=== PATIENT | male | born 1970 | race Caucasian/White ===

== ENCOUNTER 2019-02-06 18:12 | Inpatient (IN) | payer OTHER ==
[2019-02-06] MEDS ORDERED: ONDANSETRON 4 MG/2 ML VIAL IVP ONE (18:37)
[2019-02-06] MEDS ORDERED: HYDROmorphONE/DILAUDID 2 MG/ML INJ IVP ONE (18:37)
--- NOTE | 2019-02-06 18:57 | EDPHY ---
H & P Stated Complaint: Dx oveerseas gall stones c biliary obstr. N/V, jaundice, pain Time Seen by Provider: 02/06/19 18:14 HPI/ROS: CHIEF COMPLAINT: Jaundice, dark urine, abdominal pain, recent diagnosis of gallstones HISTORY OF PRESENT ILLNESS: 49-year-old male presents from [facility]. Patient's job requires him to travel to [facility] for several weeks each month. 1 week ago, while in [facility], he developed right upper quadrant discomfort, described as a cramp. 2 days later he noted that the pain was worse when he was eating. noted that the patient was developing scleral icterus, the patient noted dark, tea-colored urine. 3 days ago he was seen at hospital in [facility] and was diagnosed with gallbladder sludge, and a 5 mm gallstone. Patient reports that if he eats anything develops severe pain and vomiting. He has not had food for the last week. Denies any fever. No chest pain, shortness of breath, diarrhea. No urinary complaints other than dark urine. Reports no abdominal pain currently. Also reports hepatitis screen in [facility] for hepatitis A, B, and C were negative. No fever, chills, chest pain, shortness of breath, palpitations, diarrhea, urinary complaints, headache, lightheadedness. REVIEW OF SYSTEMS: A comprehensive 10 system review of systems was reviewed and is otherwise negative aside from elements mentioned in the history of present illness and medical decision making. PAST MEDICAL HISTORY: Aortic valve replacement x2 secondary to bicuspid aortic valve and endocarditis. Currently not on any anticoagulants. SOCIAL HISTORY: Here with his . Occasional alcohol, nonsmoker, daily marijuana use. believes patient is somewhat slow to answer questions. VITAL SIGNS Reviewed by me. Heart rate 109, afebrile. GENERAL: Well-developed, well-nourished, resting comfortably in no respiratory distress. Obviously jaundiced. HEENT: Atraumatic. Eyes: Scleral icterus, no injection. Mouth: Slightly dry mucous membranes. No erythema or lesions. Neck: supple with no adenopathy. LUNGS: Clear to auscultation bilaterally, no wheezes, rhonchi or rales. CARDIAC: Regular rate and rhythm, soft systolic murmurs. ABDOMEN: Soft, mild right upper quadrant tenderness, no distension. No guarding. BACK: No CVA tenderness. EXTREMITIES: No trauma. No edema. Range of motion is normal throughout. NEURO: Alert and oriented, grossly nonfocal. SKIN: Warm and dry, no rash. PSYCHIATRIC: Normal mentation, no agitation. - Personal History Current Tetanus/Diphtheria Vaccine: Unsure - Medical/Surgical History Hx Asthma: No Hx Chronic Respiratory Disease: No Hx Diabetes: No Hx Cardiac Disease: No Hx Renal Disease: No Hx Cirrhosis: No Hx Alcoholism: No Hx HIV/AIDS: No Hx Splenectomy or Spleen Trauma: No Other PMH: Aortic valve x2, endocarditist - Social History Smoking Status: Former smoker Constitutional: Initial Vital Signs Temperature (C) 36.4 C 02/06/19 18:15 Heart Rate 109 H 02/06/19 18:15 Respiratory Rate 16 02/06/19 18:15 Blood Pressure 124/92 H 02/06/19 18:15 O2 Sat (%) 94 02/06/19 18:15 O2 Delivery Mode Room Air Allergies/Adverse Reactions: cefazolin Allergy (Verified 02/06/19 19:48) Home Medications: Medication Instructions Recorded Aspirin EC [Aspirin EC 81 mg (*)] 81 mg PO HS 02/06/19 Metoprolol Succinate Xr [Toprol Xl 25 mg PO HS 02/06/19 25 mg (*)] Acetaminophen [Tylenol 325mg (*)] 650 mg PO Q4HRS PRN tab 02/08/19 Medical Decision Making - Diagnostics Imaging Results: RUQ Ultrasound Impression: 1. Choledocholithiasis with 7mm calculus in the downstream common bile duct resulting in moderate biliary dilation. 2. Cholelithiasis and gallbladder sludge. Positive sonographic Carroll sign. 3. Probably benign hemangioma versus focal hepatic steatosis in caudal right lobe of liver. Imaging options include six-month wall of targeted ultrasound versus MRI of the abdomen with and without IV contrast. Findings discussed with Emergency Department physician certified surgical tech/first assistant, Rosa Funk MD at 02/06/2019 19:36. Dictated By: Donn Welch MD Imaging: Discussed imaging studies w/ call center trainer Radiologist ED Course/Re-evaluation: IV placed, normal saline begun. Patient denies any current pain. Labs from [facility] below reviewed by myself. Patient has white count of 7.9 when he was seen on February 04. Laboratory evaluation demonstrates a white count of 6.9, electrolytes remarkable for elevation of ALT and AST and alk-phos in the 200 range. Bilirubin is 7.5. Ultrasound is consistent with choledocholithiasis with a 7 mm gallstone lodged the pancreatic section of the of the common bile duct with obstructive features. Patient's course was discussed with the hospitalist service, Dr. Rusty Haynes , who will admit the patient. Gastroenterology, Dr. Andrea, was also consulted for probable ERCP. General surgery, Dr. Peña, is also aware of the patient. Discussed the results of the lab studies and ultrasound with the patient and his and they are in agreement. Differential Diagnosis: After obtaining the patient's history and performing an examination, differential diagnosis considered included but was not limited to cholecystitis , choledocholithiasis, cholangitis, pancreatitis, hepatitis. Consult/Admit Bed Type: Dr. Shantanu Haynes, [facility] surg - Data Points Laboratory Results: Laboratory Results 02/06/19 18:42 02/06/19 18:42 Medications Given: Discontinued Medications Bupivacaine HCl/Epinephrine Bitart (Bupivacaine/Epi) Confirm Administered Dose 30 ml .ROUTE .[facility]-MED ONE Stop: 02/08/19 08:59 Last Admin: 02/08/19 10:13 Dose: 30 ml Sodium Chloride (Ns) 1,000 mls @ 0 mls/hr IV ONCE ONE; Wide Open PRN Reason: Protocol Stop: 02/06/19 19:01 Last Admin: 02/06/19 19:15 Dose: 1,000 mls Sodium Chloride (Ns) 1,000 mls @ 0 mls/hr IV ONCE ONE; Wide Open PRN Reason: Protocol Stop: 02/06/19 19:02 Last Admin: 02/06/19 19:01 Dose: Not Given Ertapenem 1 gm/ Sodium (Chloride) 100 mls @ 200 mls/hr IV Q24H AMY PRN Reason: Protocol Stop: 03/08/19 20:59 Last Admin: 02/07/19 20:09 Dose: 100 mls Sodium Chloride (Ns) 1,000 mls @ 125 mls/hr IV CONT AMY Stop: 08/05/19 20:29 Last Admin: 02/08/19 02:29 Dose: 1,000 mls Lactated Ringer's (Lr) 1,000 mls @ 125 mls/hr IV ONCE ONE Stop: 02/07/19 23:12 Last Admin: 02/07/19 15:21 Dose: 1,000 mls Lactated Ringer's (Lr) 1,000 mls @ 0 mls/hr IV ONCE ONE PRN Reason: TKO Stop: 02/08/19 09:08 Last Admin: 02/08/19 13:18 Dose: Not Given Indomethacin (Indocin Rectal) Confirm Administered Dose 100 mg WA .STK-MED ONE Stop: 02/07/19 17:51 Last Admin: 02/07/19 18:06 Dose: 100 mg Iopamidol (Isovue-M 300) Confirm Administered Dose 15 ml .ROUTE .STK-MED ONE Stop: 02/08/19 08:59 Last Admin: 02/08/19 10:14 Dose: Not Given Iothalamate Meglumine (Conray) Confirm Administered Dose 50 ml IV .STK-MED ONE Stop: 02/08/19 08:59 Last Admin: 02/08/19 10:14 Dose: Not Given Metoprolol Succinate (Toprol Xl) 25 mg PO HS AMY Stop: 08/05/19 20:59 Last Admin: 02/07/19 20:12 Dose: 25 mg Ondansetron HCl (Zofran) 4 mg IVP EDNOW ONE Stop: 02/06/19 18:38 Last Admin: 02/06/19 19:01 Dose: Not Given Departure - Departure Disposition: [facility] Acute Clinical Impression: Jaundice, Choledocholithiasis with acute cholecystitis Abdominal pain Qualifiers: Abdominal location: right upper quadrant Qualified Code(s): R10.11 - Right upper quadrant pain Condition: Fair
[2019-02-06] MEDS ORDERED: NS 1,000 ML IV ONE (19:01)
[2019-02-06] MEDS: NS 1,000 ML IV ONE ×2 (19:12→19:15)
[2019-02-06 19:14] LABS: PLATELET COUNT 218 10^3/uL (150-400)
[2019-02-06 19:21] LABS: INR 1.02 (0.83-1.16)
[2019-02-06] MEDS ORDERED: ACETAMINOPHEN 325 MG TAB PO PRN (20:19)
[2019-02-06] MEDS ORDERED: ONDANSETRON 4 MG/2 ML VIAL IVP PRN (20:19)
[2019-02-06] MEDS ORDERED: PROMETHAZINE HCL 25 MG/ML INJ IVP PRN (20:19)
[2019-02-06] MEDS ORDERED: ONDANSETRON DISINTEGRATING 4 MG TAB PO PRN (20:19)
[2019-02-06] MEDS ORDERED: HYDROmorphONE/DILAUDID 1 MG/ML INJ IVP PRN (20:19)
--- NOTE | 2019-02-06 21:01 | PDGENHP ---
History and Physical - Chief Complaint abdominal pain, jaundice - History of Present Illness Otherwise healthy 49yo M presents with jaundice, abdominal pain. Briefly, was in [place] last week as he works [place]. Noted some progressive abdominal pain with jaundice. Was seen by a physician there who correctly diagnosed him with choledoch. Was placed on a few medications and traveled back home. He arrived home earlier today. He has no pain currently, but does state that he is orange. PAin that he was having was RUQ without radiation and worse with PO intake, History Information - Allergies/Home Medication List Allergies/Adverse Reactions: cefazolin Allergy (Verified 02/06/19 19:48) Home Medications: Aspirin EC [Aspirin EC 81 mg (*)] 81 mg PO HS 02/06/19 [Last Taken 02/05/19] Metoprolol Succinate Xr [Toprol Xl 25 mg (*)] 25 mg PO HS 02/06/19 [Last Taken 02/05/19] I have personally reviewed and updated: family history, medical history, social history, surgical history Past Medical History: bicuspid AV, s/p AVR x2 - Surgical History Additional surgical history: no abd surgeries, AVR x2 - Family History Positive for: non-pertinent - Social History Smoking Status: Former smoker Review of Systems Review of Systems: ROS: 10pt was reviewed & negative except for what was stated in HPI & below Physical Exam Physical Exam: Temp Pulse Resp BP Pulse Ox 36.7 C 78 16 124/73 H 91 L 02/06/19 20:24 02/06/19 20:24 02/06/19 20:24 02/06/19 20:24 02/06/19 20:24 Constitutional: no apparent distress, appears nourished, not in pain Eyes: PERRL, anicteric sclera, EOMI Ears, Nose, Mouth, Throat: moist mucous membranes, hearing normal, ears appear normal, no oral mucosal ulcers Cardiovascular: regular rate and rhythym, no murmur, rub, or gallop, No edema Respiratory: no respiratory distress, no rales or rhonchi, clear to auscultation Gastrointestinal: soft, non-tender abdomen, no palpable masses Genitourinary: no bladder fullness, no bladder tenderness Skin: warm, normal color, no rashes or abrasions, no fluctuance, no induration, No mottled Musculoskeletal: full muscle strength, no muscle tenderness, normal joint ROM, no joint effusions Psychiatric: interacting appropriately, not anxious, not encephalopathic, thought process linear Lymph, Heme, Immunologic: no cervical LAD, no supraclavicular LAD Lab Data & Imaging Review 02/06/19 18:42 02/06/19 18:42 WBC 6.94 10^3/uL (3.80-9.50) 02/06/19 18:42 RBC 4.82 10^6/uL (4.40-6.38) 02/06/19 18:42 Hgb 14.6 g/dL (13.7-17.5) 02/06/19 18:42 Hct 40.5 % (40.0-51.0) 02/06/19 18:42 MCV 84.0 fL (81.5-99.8) 02/06/19 18:42 MCH 30.3 pg (27.9-34.1) 02/06/19 18:42 MCHC 36.0 g/dL (32.4-36.7) 02/06/19 18:42 RDW 12.7 % (11.5-15.2) 02/06/19 18:42 Plt Count 218 10^3/uL (150-400) 02/06/19 18:42 MPV 10.8 fL (8.7-11.7) 02/06/19 18:42 Neut % (Auto) 54.1 % (39.3-74.2) 02/06/19 18:42 Lymph % (Auto) 33.7 % (15.0-45.0) 02/06/19 18:42 [place] % (Auto) 8.9 % (4.5-13.0) 02/06/19 18:42 Eos % (Auto) 2.4 % (0.6-7.6) 02/06/19 18:42 Baso % (Auto) 0.6 % (0.3-1.7) 02/06/19 18:42 Nucleat RBC Rel Count 0.0 % (0.0-0.2) 02/06/19 18:42 Absolute Neuts (auto) 3.75 10^3/uL (1.70-6.50) 02/06/19 18:42 Absolute Lymphs (auto) 2.34 10^3/uL (1.00-3.00) 02/06/19 18:42 Absolute Monos (auto) 0.62 10^3/uL (0.30-0.80) 02/06/19 18:42 Absolute Eos (auto) 0.17 10^3/uL (0.03-0.40) 02/06/19 18:42 Absolute Basos (auto) 0.04 10^3/uL (0.02-0.10) 02/06/19 18:42 Absolute Nucleated RBC 0.00 10^3/uL (0-0.01) 02/06/19 18:42 Immature Gran % 0.3 % (0.0-1.1) 02/06/19 18:42 Immature Gran # 0.02 10^3/uL (0.00-0.10) 02/06/19 18:42 PT 13.0 SEC (12.0-15.0) 02/06/19 18:42 INR 1.02 (0.83-1.16) 02/06/19 18:42 APTT 26.9 SEC (23.0-38.0) 02/06/19 18:42 VBG Lactic Acid 1.0 mmol/L (0.7-2.1) 02/06/19 18:42 Sodium 137 mEq/L (135-145) 02/06/19 18:42 Potassium 3.7 mEq/L (3.5-5.2) 02/06/19 18:42 Chloride 100 mEq/L (97-110) 02/06/19 18:42 Carbon Dioxide 26 mEq/l (22-31) 02/06/19 18:42 Anion Gap 11 mEq/L (6-14) 02/06/19 18:42 BUN 11 mg/dL (7-23) 02/06/19 18:42 Creatinine 0.9 mg/dL (0.7-1.3) 02/06/19 18:42 Estimated GFR > 60 02/06/19 18:42 Glucose 96 mg/dL (70-100) 02/06/19 18:42 Calcium 9.7 mg/dL (8.5-10.4) 02/06/19 18:42 Total Bilirubin 7.5 mg/dL (0.1-1.4) H 02/06/19 18:42 Conjugated Bilirubin 5.0 mg/dL (0.0-0.5) H 02/06/19 18:42 Unconjugated Bilirubin 2.5 mg/dL (0.0-1.1) H 02/06/19 18:42 AST 147 IU/L (17-59) H 02/06/19 18:42 ALT 387 IU/L (21-72) H 02/06/19 18:42 Alkaline Phosphatase 229 IU/L (38-126) H 02/06/19 18:42 Total Protein 7.4 g/dL (6.3-8.2) 02/06/19 18:42 Albumin 4.6 g/dL (3.5-5.0) 02/06/19 18:42 Lipase 58 IU/L (23-300) 02/06/19 18:42 Urine Color RJ 02/06/19 18:30 Urine Appearance CLEAR 02/06/19 18:30 Urine pH 6.0 (5.0-7.5) 02/06/19 18:30 Ur Specific [place] 1.010 (1.002-1.030) 02/06/19 18:30 Urine Protein NEGATIVE (NEGATIVE) 02/06/19 18:30 Urine Ketones NEGATIVE (NEGATIVE) 02/06/19 18:30 Urine Blood NEGATIVE (NEGATIVE) 02/06/19 18:30 Urine Nitrate NEGATIVE (NEGATIVE) 02/06/19 18:30 Urine Bilirubin NEGATIVE (NEGATIVE) 02/06/19 18:30 Urine Urobilinogen 4.0 EU (0.2-1.0) H 02/06/19 18:30 Ur Leukocyte Esterase NEGATIVE (NEGATIVE) 02/06/19 18:30 Urine RBC 1-3 /hpf (0-3) 02/06/19 18:30 Urine WBC 1-3 /hpf (0-3) 02/06/19 18:30 Ur Epithelial Cells TRACE /lpf (NONE-1+) 02/06/19 18:30 Urine Glucose NEGATIVE (NEGATIVE) 02/06/19 18:30 Visualized and Interpreted imaging results: Yes Interpretation: US choledoch, many stones in GB, no PCF, normal GBW Assessment & Plan Assessment: 49yo M c choledocholithiasis Plan: admit to IM IV abx given hx of endocarditis, I see no current signs of cholangitis - ERCP tomorrow - will follow with lap yecenia. RBA discussed, all questions answered.
[2019-02-06] MEDS: NS 1,000 ML IV SCH (21:10)
[2019-02-06] MEDS: ERTAPENEM 1 GM in NS 100 ML IV SCH (21:10)
--- NOTE | 2019-02-06 21:10 | GHP ---
[f rep st] HISTORY AND PHYSICAL DATE OF ADMISSION: 02/06/2019 HISTORY OF PRESENT ILLNESS: The patient is a pleasant 49-year-old gentleman with past medical histor y of bicuspid aortic valve with aortic valve replacement x2, last 25 years ago, as well as remote end ocarditis who presents with several days of abdominal pain and jaundice. He had been traveling [place] in [facility], and for about the last week, he has felt some right upper quadrant pain and n ausea. He has had a difficult time eating, really has not eaten at all. He saw a doctor there who d id an ultrasound, apparently diagnosed him with choledocholithiasis and gave him pain medicine and an tibiotics, what appears to be amoxicillin. He ultimately decided to fly home, and [place]. When I speak with the patient, he notes he has right upper quadrant pain. He has had jaundice. He has not had a bowel movement in a week. He has not been having romero-colored stools. H e has been having dark urine. He states he is not having fever or chills. He does not have heart failure symptoms now, but he has in the past. He is not having nausea, vomiti ng, or diarrhea. REVIEW OF SYSTEMS: Complete 10-point review of systems conducted and negative, except as noted in th e HPI. PAST MEDICAL HISTORY: 1. Bicuspid aortic valve with aortic valve replacement x2. 2. 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 His last aortic valve replacement was 1992 at the [facility]. ALLERGIES: Cefazolin. He also has a hard time tolerating ampicillin. He gets flushing. HOME MEDICATIONS: Metoprolol and aspirin. SOCIAL HISTORY: He lives in [facility] with his . He is a nonsmoker. Rare alcohol. PHYSICAL EXAMINATION: PRESENTING VITALS: Temp 36.4, blood pressure 124/92, pulse 109, breathing 16 times a minute, 94% on room air. GENERAL: No acute distress. HEENT: Sclerae are anicteric. Oroph arynx clear. Mucous membranes are moist. NECK: Supple without lymphadenopathy or JVD. LUNGS: Carroll ar to auscultation bilaterally. HEART: S1, S2. ABDOMEN: Soft. There is right upper quadrant tend erness. There is no rebound or guarding. Bowel sounds are hypoactive but present. LOWER EXTREMITIE S: Trace edema bilaterally. Calves are nontender. SKIN: Without rash. NEUROLOGIC: Nonfocal. LABS: White count 6.9, hematocrit 40, platelets are 218,000. Coags: INR is 1. Venous lactate is 1 .00. Chem-7: Sodium 137, potassium 3.7, chloride 100, bicarb 26, BUN 11, creatinine 0.9. Bilirubin is 7.55, which is conjugated. AST 147, ALT 387, alk phos 229, lipase 58. UA is unremarkable other than urobilinogen. Abdominal ultrasound shows a 7 mm common bile duct stone with moderate biliary di lation, cholelithiasis, and gallbladder sludge with positive sonographic Carroll sign. Positive heman gioma of the liver. I discussed the case with Dr. Jaya Andrea, Dr. Rosa Funk. ASSESSMENT AND PLAN: A -wnhg-ddl gentle with choledocholithiasis and hyperbilirubinemia. 1. Choledocholithiasis: The patient needs an endoscopic retrograde cholangiopancreatography. I dis cussed this with Dr. Andrea who will see him in the morning. I will make him nothing by mouth past m idnight. Given his longstanding nature of this, will start him on ertapenem tonight. I have made th is antibiotic choice because of his intolerance of ampicillin. 2. Question cholecystitis: He has a source of stones and a Carroll sign. He probably ultimately nee ds cholecystectomy. Surgery has been consulted. Dr. Peña requested endoscopic retrograde chol angiopancreatography prior to laparoscopic cholecystectomy. 3. Bicuspid aortic valve: Patient has a tissue valve. He is not on anticoagulants. 4. Prophylaxis: Sequential compression devices for now. DISPOSITION: Inpatient status. /[id number]/MODL
[2019-02-06] MEDS: METOPROLOL SUCCINATE XR 25 MG TAB PO SCH (23:05)
[2019-02-07] MEDS: NS 1,000 ML IV SCH ×2 (05:09→12:31)
[2019-02-07 05:12] LABS: PLATELET COUNT 219 10^3/uL (150-400)
[2019-02-07 05:19] LABS: PROTIME(PATIENT) 12.8 SEC (12.0-15.0)
--- NOTE | 2019-02-07 07:07 | PDMN ---
Medical Necessity Medical necessity: Pt meets inpt criteria per MD order and [facility] M-[id number], Gallbladder or Bile Duct Inflammation or Stone, A-2 days, inpt adm indicated for : common bile duct obstruction diagnosed by imaging and for: evidence of common bile duct disease as indicated by total serum bilirubin level greater than 2 mg/ dL . 49 y/o presenting w/jaundice,RUQ pain, and nausea admitted w/ choledocholithiasis and hyperbilirubinemia (total bilirubin 7.5 on admission), abd US shows choledocholithiasis w/7 mm calculus in CBD resulting in biliary obstruction and dilation, +Carroll sign, surg and GI consulted, ERCP today likely followed by guillermo keene. PMH includes bicuspid AV w/aortic valve replacement x 2 and remote endocarditis. Anticipate>2MN for further eval/ management of above.
--- NOTE | 2019-02-07 08:25 | HOSPPROG ---
Hospitalist Progress Note Assessment/Plan: #Choledocholithiasis -afebrile, no leukocytosis. On empiric abx given prolonged course of illness -ERCP and choley planned #h/o bicuspid Av, s/p repair x 2 #h/o endocarditis: afebrile, cultures negative #Diet: NPO #Disp: inpatient admission for ERCP, surgery Subjective: no N/V, abd pain Objective: Vital Signs Temp Pulse Resp BP Pulse Ox 36.8 C 71 16 131/75 H 95 02/07/19 04:18 02/07/19 04:18 02/07/19 04:18 02/07/19 04:34 02/07/19 04:18 Laboratory Results 02/07/19 04:21 02/07/19 04:21 02/06/19 02/07/19 02/08/19 05:59 05:59 05:59 Intake Total 1984 Balance 1983 PT 12.8 SEC (12.0-15.0) 02/07/19 04:21 INR 1.00 (0.83-1.16) 02/07/19 04:21 - Time Spent With Patient Time Spent with Patient: greater than 35 minutes Time Spent with Patient: Greater than 35 minutes spent on this patients care, greater than 50% of time spent counseling, educating, and coordinating care regarding the above mentioned plan. - Physical Exam Constitutional: no apparent distress Eyes: PERRL Ears, Nose, Mouth, Throat: moist mucous membranes Cardiovascular: regular rate and rhythym Gastrointestinal: other (mild RUQ pain) Skin: warm Musculoskeletal: full muscle strength Neurologic: AAOx3, CN II-XII Intact Psychiatric: interacting appropriately ICD10 Worksheet Patient Problems: Problems Problem Status Onset Abdominal pain Acute - ICD10 Problem Qualifiers (1) Abdominal pain
--- NOTE | 2019-02-07 11:34 | ASMTCMCOM ---
CM Note CM Note Notes: CM spoke with pt and in the room who were sitting up playing cards. Pt admitted for choledocholithiasis and will have ERCP today and likely lap yecenia tomorros. Pt states he has abundant family support locally and will be happy to discharge indpendently. CM to follow. D/C Plan: Independent Date Signed: 02/07/2019 11:33 AM Electronically Signed By:Jocelyn Martinez
--- NOTE | 2019-02-07 13:49 | SOAPPROG ---
SOAP Progress Note Assessment/Plan: Assessment:Plan: see full dictated consult 49 y/o male with CBD stone and Cholecystitis ERCp followed by guillermo Andrea MD [phone] 02/07/19 13:47 Subjective: cc - cbd stone Objective: Vital Signs Temp Pulse Resp BP Pulse Ox 36.8 C 65 14 148/94 H 94 02/07/19 11:43 02/07/19 11:43 02/07/19 11:43 02/07/19 11:43 02/07/19 11:43 Laboratory Results 02/07/19 04:21 02/07/19 04:21 02/06/19 02/07/19 02/08/19 05:59 05:59 05:59 Intake Total 1984 Balance 1984 PT 12.8 SEC (12.0-15.0) 02/07/19 04:21 INR 1.00 (0.83-1.16) 02/07/19 04:21 cta s1s2 - Time Spent With Patient Time Spent With Patient: 5 - Pending Discharge Pending Discharge Within 24 Hours: No Pending Discharge Within 48 Hours: No ICD10 Worksheet Patient Problems: Problems Problem Status Onset Abdominal pain Acute
[2019-02-07] MEDS ORDERED: IOTHALAMATE MEG (CONRAY) 50 ML VIAL IV ONE (14:04)
--- NOTE | 2019-02-07 14:33 | GCON ---
[f rep st] CONSULTATION DATE OF CONSULTATION: 02/07/2019 REFERRING PHYSICIAN: Rusty Haynes MD INDICATION FOR CONSULTATION: Choledocholithiasis. HPI: I have been asked by Dr. Haynes to see Moises in consultation for chief complaint of choledocholi thiasis. Moises is a very pleasant 49-year-old male who has a history of congenital bicuspid aortic va lve status post endocarditis x2 with aortic valve replacement. He was in usual state of health when he was traveling for work in [facility]. He started to develop significant abdominal pain approximately 8 days ago with any p.o. intake. He subsequently did develop some jaundice and was evaluated in [facility] and documented to have choledocholithiasis, cholelithiasis and cholecystitis. He was placed on amoxicillin and he made arrangements to travel back to [place] for further treatment. He came direct ly to the emergency room from the [facility] and was admitted for the above. Since he has been on antibioti cs, his pain has improved, although he still has significant discomfort when he has p.o. intake assoc iated with nausea and vomiting. His urine is darker, but his stools have not changed color. He kayli es any fevers, chills, or sweats. He looks quite comfortable sitting in his bed. He is now admitted for the above and I am called to help evaluate and treat his choledocholithiasis. PAST MEDICAL HISTORY: Congenital bicuspid aortic valve with endocarditis x2 and aortic valve placeme nt x2. V-tachyarrhythmia, which is controlled on metoprolol. ALLERGIES: Cefazolin causes hives. HOME MEDICATIONS: Medications at home include metoprolol and amoxicillin. HOSPITAL MEDICATIONS: Tylenol p.r.n., ertapenem 1 g IV q.24, Dilaudid p.r.n., Toprol 25 mg p.o. at b edtime, Zofran p.r.n., Phenergan p.r.n. PAST SURGICAL HISTORY: Aortic valve replacement. SOCIAL HISTORY: He does not smoke. He drinks alcohol rarely. FAMILY HISTORY: No GI malignancies or cancers to his knowledge. No one in his family has gallstones to his knowledge. REVIEW OF SYSTEMS: A complete review of systems has been performed and negative other than noted in the HPI. Other pertinent negatives include no chest pain, palpitations, diaphoresis, fevers, chills or sweats. PHYSICAL EXAM: GENERAL: A well-developed, well-nourished male, sitting in his bed, in no acute dist ress. He is playing cards with his and daughter. VITAL SIGNS: Temperature is 37.1, blood pres sure is 138/92, pulse is 63, respiratory rate is 14. He is 95% on room air. EYES: Anicteric. PERR L, EOMI. MOUTH: No lesions. Moist mucous membranes. NECK: Supple. Full range of motion. No JVD . BACK: No spine tenderness. No CVA tenderness. LUNGS: Clear. CARDIAC: S1, S2. Regular rate a nd rhythm. ABDOMEN: Bowel sounds are normal in pitch and frequency. Soft with minimal right upper quadrant tenderness and epigastric tenderness on deep palpation. No rebound. No guarding. No hepat osplenomegaly. EXTREMITIES: No cyanosis, clubbing, or edema. NEUROLOGIC: Cranial nerves intact. Nonfocal. SKIN: No stigmata of advanced liver disease. No rashes. LABORATORY DATA: From February 07, WBC 6.41, hemoglobin 14.3, hematocrit 41.7, platelet count 219. Sodiu m 140, potassium 4.0, chloride 105, bicarb 26, BUN 8, creatinine 0.8, calcium 9.3, bilirubin 7.0, AST 137, ALT 351, alk phos 184, albumin 4.1, total protein 6.8. In 2013, he had normal liver enzymes. From today, February 07, pro-time 12.8, INR 1.0, PTT 27.6. Abdominal ultrasound performed February 06, 2019: Choledocholithiasis with 7 mm calculus in the downstrea m common bile duct resulting in moderate biliary dilatation. Cholelithiasis and gallbladder sludge. Positive sonographic Carroll sign. Probable benign hemangioma versus focal hepatic steatosis in caudal lobe of the liver. Imaging optio ns include 6-month targeted ultrasound versus MRI of the abdomen with and without contrast. ASSESSMENT: 1. Choledocholithiasis. 2. Elevated liver enzymes. 3. Right upper quadrant pain. 4. Cholecystitis. 5. Abnormal imaging of his liver with possible hemangiomas. 6. History of endocarditis and aortic valve replacement. RECOMMENDATIONS: 1. Proceed with ERCP with general anesthesia. Continue antibiotics as ordered. 2. Repeat ultrasound in approximately 6 months. 3. Lap yecenia to follow ERCP. 4. Routine screening colonoscopy at age 50. 5. Further recommendations to follow results above and clinical course. Thank you for allowing me to participate in the patient's healthcare. Do not hesitate to call me if any questions. /[id number]/MODL
[2019-02-07] MEDS ORDERED: LR 1,000 ML IV ONE (15:13)
--- NOTE | 2019-02-07 15:20 | PDANEPAE ---
ANE Past Medical History - Cardiovascular History Hx Arrhythmias: Yes Hx CHF / Valvular Disease: Yes - Pulmonary History Hx Oxygen in Use at Home: No Hx Sleep Apnea: No Sleep Apnea Screening Result - Last Documented: Negative - Endocrine History Hx Diabetes: No Obesity: no - Chronic Pain History Chronic Pain: No ANE Review of Systems Review of Systems: ANE Patient History - Allergies Allergies/Adverse Reactions: cefazolin Allergy (Verified 02/06/19 19:48) - Home Medications Home medications: home medication list seen and reviewed Home Medications: Aspirin EC [Aspirin EC 81 mg (*)] 81 mg PO HS 02/06/19 [Last Taken 02/05/19] Metoprolol Succinate Xr [Toprol Xl 25 mg (*)] 25 mg PO HS 02/06/19 [Last Taken 02/05/19] - NPO status NPO Status: no food or drink >8 hours NPO Since - Liquids (Date): 02/07/19 NPO Since - Liquids (Time): 00:00 NPO Since - Solids (Date): 02/07/19 NPO Since - Solids (Time): 00:00 - Anes Hx Anes Hx: no prior problems - Smoking Hx Smoking Status: Former smoker ANE Labs/Vital Signs - Labs Result Diagrams: 02/07/19 04:21 02/07/19 04:21 - Vital Signs Blood Pressure: 148/94 Heart Rate: 65 Respiratory Rate: 14 O2 Sat (%): 94 Height: 182.88 cm Weight: 73.7 kg ANE Physical Exam - Airway Neck exam: FROM Mallampati Score: Class 1 Mouth exam: normal dental/mouth exam - Pulmonary Pulmonary: no respiratory distress, no rales or rhonchi, clear to auscultation - Cardiovascular Cardiovascular: regular rate and rhythym, no murmur, rub, or gallop - ASA Status ASA Status: II ANE Anesthesia Plan Anesthesia Plan: general endotracheal anesthesia
[2019-02-07] MEDS ORDERED: LIDOCAINE 2% 2 ML INJ ONE (17:34)
[2019-02-07] MEDS ORDERED: ROCURONIUM 100 MG/10 ML VIAL ONE (17:34)
[2019-02-07] MEDS ORDERED: fentaNYL 250 MCG/5 ML INJ ONE (17:34)
[2019-02-07] MEDS ORDERED: PROPOFOL 200 MG/20 ML VIAL ONE ×2 (17:34)
[2019-02-07] MEDS ORDERED: INDOMETHACIN 50 MG SUPP PR ONE (17:50)
[2019-02-07] MEDS ORDERED: GLUCAGON HCL 1 MG VIAL ONE ×2 (17:57→18:16)
[2019-02-07] MEDS ORDERED: SUGAMMADEX SODIUM 200 MG/2 ML VIAL IVP ONE (18:44)
[2019-02-07] MEDS ORDERED: DEXAMETHASONE 4 MG/ML VIAL ONE (18:44)
[2019-02-07] MEDS ORDERED: ONDANSETRON 4 MG/2 ML VIAL ONE (18:44)
[2019-02-07] MEDS ORDERED: fentaNYL 100 MCG/2 ML INJ IVP PRN (18:46)
[2019-02-07] MEDS ORDERED: PROMETHAZINE HCL 25 MG/ML INJ IVP PRN (18:46)
[2019-02-07] MEDS ORDERED: NALOXONE HCL 0.4 MG/ML INJ IVP PRN (18:46)
--- NOTE | 2019-02-07 18:46 | POSTANESTH ---
Post Anesthetic Evaluation Cardiovascular Status: Normal, Stable Respiratory Status: Normal, Stable Level of Consciousness/Mental Status: Can Participate in Eval Pain Control: Adequate, Prn Tx Ordered Nausea/Vomiting Control: Adequate, Prn Tx Ordered Complications Possibly Related to Anesthesia: None Noted
--- NOTE | 2019-02-07 18:56 | GIREPORT ---
Formerly [facility] Surgical Services - Endoscopy Department Patient Name: Moises Díaz Procedure Date: 02/07/2019 2:45 PM Patient Type: Inpatient Attending MD/ ER Physician: Jaya Andrea MD Procedure: ERCP Indications: Common bile duct stone(s) Providers: Jaya Andrea MD Medicines: General Anesthesia Complications: No immediate complications. Estimated blood loss: Minimal. Description of Procedure: After obtaining informed consent, the scope was passed under direct vis ion. Throughout the procedure, the patient's blood pressure, pulse, and oxyg en saturations were monitored continuously. The Duodenalscope was introduc ed through the mouth, and advanced to the duodenum and used to inject cont rast into the bile duct. The ERCP was accomplished without difficulty. The patient tolerated the procedure well. Findings: The carbonation equipment operator film was normal. The esophagus was successfully intubated und er direct vision. The scope was advanced to a normal major papilla in the descending duodenum without detailed examination of the pharynx, larynx and associated structures, and upper GI tract. The upper GI tract was gross ly normal. The bile duct was deeply cannulated with the traction (standard ) sphincterotome. Contrast was injected. I personally interpreted the casie e duct images. Ductal flow of contrast was adequate. Image quality was adequate. Contrast extended to the bifurcation. Opacification of the up per third of the main bile duct was successful. The maximum diameter of the ducts was 12 mm. The upper third of the main bile duct contained one st one, which was 7 mm in diameter. The in the biliary system was diffusely dil ated, with a stone causing an obstruction. The biliary tree was swept with a 12 mm balloon starting at the bifurcation. All stones were removed. Estimated Blood Loss: Estimated blood loss was minimal. Post Op Diagnosis: - The biliary system was dilated, with a stone causing an obstruction. - Choledocholithiasis was found. Complete removal was accomplished by balloon extraction. - The biliary tree was swept. Recommendation: - Return patient to hospital [facility] for ongoing care. - Clear liquid diet. - Cholecystectomy at appointment to be scheduled. - Thank you for allowing me to help in your patient's care. Do not hesi cerda to call with any questions. Attending Participation: I personally performed the entire procedure. Emre Lynne M.D Jaya Andrea MD 02/07/2019 6:56:24 PM This report has been signed electronicallyMattstefano Andrea MD Number of Addenda: 0 Note Initiated On: 02/07/2019 2:45 PM [email or web address]
[2019-02-07] MEDS: ERTAPENEM 1 GM in NS 100 ML IV SCH (20:09)
[2019-02-07] MEDS: METOPROLOL SUCCINATE XR 25 MG TAB PO SCH (20:12)
[2019-02-08] MEDS: NS 1,000 ML IV SCH (02:29)
[2019-02-08 05:16] LABS: PLATELET COUNT 188 10^3/uL (150-400)
--- NOTE | 2019-02-08 08:11 | PDHPUP ---
History & Physical Update H&P update statement: This history and physical update is based on an assessment of the patient which was completed after admission or registration (within 24 hours), but prior to the surgery/procedure. H&P update: H&P reviewed & patient examined (ERCP successful with stone extraction. Will proceed with lap yecenia. ), changes noted
[2019-02-08] MEDS ORDERED: BUPIVACAINE/EPI 0.25% 30 ML SDV ONE (08:58)
[2019-02-08] MEDS ORDERED: IOTHALAMATE MEG (CONRAY) 50 ML VIAL IV ONE (08:58)
[2019-02-08] MEDS ORDERED: IOPAMIDOL (ISOVUE-M 300) 15 ML VIAL ONE (08:58)
[2019-02-08] MEDS ORDERED: LR 1,000 ML IV ONE (09:07)
--- NOTE | 2019-02-08 09:10 | PDANEPAE ---
ANE History of Present Illness lap yecenia with grams for cholelithiasis ANE Past Medical History - Cardiovascular History Hx Arrhythmias: Yes Hx CHF / Valvular Disease: Yes Cardiovascular History Comment: Hx of Bicuspid Ao Valve, endocarditis x2, now with homograft since 1997. very stable - Pulmonary History Hx Oxygen in Use at Home: No Hx Sleep Apnea: No Sleep Apnea Screening Result - Last Documented: Negative - Endocrine History Hx Diabetes: No Obesity: no - Chronic Pain History Chronic Pain: No ANE Review of Systems Review of Systems: - Exercise capacity Exercise capacity: >=4 METS ANE Patient History - Allergies Allergies/Adverse Reactions: cefazolin Allergy (Verified 02/06/19 19:48) - Home Medications Home medications: home medication list seen and reviewed Home Medications: Aspirin EC [Aspirin EC 81 mg (*)] 81 mg PO HS 02/06/19 [Last Taken 02/05/19] Metoprolol Succinate Xr [Toprol Xl 25 mg (*)] 25 mg PO HS 02/06/19 [Last Taken 02/05/19] - NPO status NPO Status: no food or drink >8 hours NPO Since - Liquids (Date): 02/08/19 NPO Since - Liquids (Time): 00:00 NPO Since - Solids (Date): 02/08/19 NPO Since - Solids (Time): 00:00 - Anes Hx Anes Hx: no prior problems - Smoking Hx Smoking Status: Former smoker - Alcohol Use Alcohol Use: None - Family Anes Hx Family Anes Hx: none ANE Labs/Vital Signs - Labs Result Diagrams: 02/08/19 04:54 02/08/19 04:54 - Vital Signs Blood Pressure: 145/78 Heart Rate: 62 Respiratory Rate: 16 O2 Sat (%): 95 Height: 182.88 cm Weight: 73.7 kg ANE Physical Exam - Airway Neck exam: FROM Mallampati Score: Class 2 Mouth exam: normal dental/mouth exam - Pulmonary Pulmonary: no respiratory distress - Cardiovascular Cardiovascular: regular rate and rhythym - ASA Status ASA Status: II ANE Anesthesia Plan Anesthesia Plan: general endotracheal anesthesia
[2019-02-08] MEDS ORDERED: fentaNYL 100 MCG/2 ML INJ ONE (09:39)
[2019-02-08] MEDS ORDERED: PROPOFOL/EMULSION 500 MG/50 ML BOTTLE IV ONE (09:39)
[2019-02-08] MEDS ORDERED: LIDOCAINE 2% 100 MG/5 ML SYR ONE (09:41)
[2019-02-08] MEDS ORDERED: DEXAMETHASONE 4 MG/ML VIAL ONE ×2 (09:42)
[2019-02-08] MEDS ORDERED: ONDANSETRON 4 MG/2 ML VIAL ONE (09:42)
[2019-02-08] MEDS ORDERED: LABETALOL HCL 5 MG/ML 20 ML MDV ONE (10:02)
--- NOTE | 2019-02-08 10:19 | HOSPPROG ---
Hospitalist Progress Note Assessment/Plan: DIAGNOSES: * Acute cholecystitis and choledocholithiasis * Status to post ERCP with removal of ductal stone * History of aortic valve repair x2 for bicuspid valve * History of endocarditis PLANS: SUBJECTIVE: OBJECTIVE Vitals reviewed: All stable without fever [employer] Marketing [employer], my review: Exam: alert oriented skin warm dry color ok resps not labored lungs clear BSs heart regular abd soft nondistended nontender, bowel sounds present limbs warm, no edema iv site ok Lab data: Liver enzymes and bili improving Stable CBC Stable electrolytes and renal function Objective: Vital Signs Temp Pulse Resp BP Pulse Ox 36.7 C 62 16 145/78 H 95 02/08/19 07:43 02/08/19 09:10 02/08/19 09:10 02/08/19 09:10 02/08/19 09:10 Laboratory Results 02/08/19 04:54 02/08/19 04:54 02/07/19 02/08/19 02/09/19 06:59 06:59 06:59 Intake Total 1983 1200 1405 Balance 1983 1200 1405 PT 12.8 SEC (12.0-15.0) 02/07/19 04:21 INR 1.00 (0.83-1.16) 02/07/19 04:21 ICD10 Worksheet Patient Problems: Problems Problem Status Onset Abdominal pain Acute
[2019-02-08] MEDS ORDERED: KETOROLAC 30 MG/1 ML SDV ONE (10:20)
[2019-02-08] MEDS ORDERED: SUGAMMADEX SODIUM 200 MG/2 ML VIAL IVP ONE (10:21)
--- NOTE | 2019-02-08 10:33 | POSTOPPROG ---
Post Op Note Date of Operation: 02/08/19 Surgeon: Wilfredo Peña Anesthesiologist: Elbert Anesthesia: GET(General Endotracheal) Pre-op Diagnosis: choledocholithiasis Post-op Diagnosis: choledocholithiasis with chronic cholecystitis Procedure: Lap yecenia Findings: edema, adhesions, critical view obtained Inf/Abcess present in the surg proc area at time of surgery?: No EBL: Minimal Specimen(s): GB
--- NOTE | 2019-02-08 12:27 | GOP ---
[f rep st] OPERATIVE REPORT DATE OF OPERATION: 02/08/2019 SURGEON: Wilfredo Peña MD RIP SAWYER: None. ANESTHESIA: General endotracheal. ANESTHESIOLOGIST: Dr. Barrie Boswell PREOPERATIVE DIAGNOSIS: Choledocholithiasis. POSTOPERATIVE DIAGNOSIS: Choledocholithiasis and chronic cholecystitis. PROCEDURE PERFORMED: Laparoscopic cholecystectomy. FINDINGS: Multiple omental adhesions and an edematous gallbladder wall consistent with chronic yecenia cystitis. A critical view was obtained. SPECIMENS: Gallbladder. ESTIMATED BLOOD LOSS: 5 cc. DESCRIPTION OF PROCEDURE: The patient was greeted in the preoperative suite and once again, risks, b enefits, and alternatives were discussed. Consent was signed. He was then brought back to the opera tive suite, placed on the OR table in supine position. After all anesthesia machines, including SCDs were on and functioning, a World Health Organization time-out was performed. After successful induc tion of general anesthesia, the patient's abdomen was prepped and draped in typical sterile fashion. I commenced the procedure by making an infraumbilical cutdown through which the Veress needle was pas sed. I achieved pneumoperitoneum to 15 mmHg, which was well tolerated by the patient. Using the Vis iport technique, I successfully inserted a 12 mm Visiport in the infraumbilical site. Once successfu lly in the abdomen, I placed 3 additional 5 mm trocars, 1 in the subxiphoid, 2 in the right upper phillip drant, all under direct visualization. I turned my attention toward the gallbladder. There were some omental adhesions to it, which were ta sergio down sharply. After adhesiolysis, the gallbladder was retracted over the liver edge by dissectin g of the infundibulum. I identified 2 and only 2 structures leading towards the gallbladder. I firs t dissected these out and skeletonized them. After my critical view was obtained, I first clipped proximally the artery distally and divided it. I then turned my attention toward the duct, which was clipped and divided in the same fashion. I the n took the gallbladder off the liver bed using electrocautery. It was placed in EndoCatch bag and re moved. Interrogating the right upper quadrant, my clips were hemostatic in appropriate position. I irrigated the right upper quadrant with a liter of sterile saline noting clear effluent in the suctio n canister. Hemostasis was good. I infiltrated local anesthesia into my port sites, which were then withdrawn under direct visualizati on. My infraumbilical site was closed with a 0 Vicryl stitch noting excellent fascial reapproximatio n. The skin was closed with Monocryl. Dermabond was placed. The patient was then extubated in the operative suite and taken to the PACU in satisfactory condition. DRAINS: None. COUNTS: All counts were reported as correct x2. /[id number]/MODL
[2019-02-08 13:32] VITALS: BP 135/78
--- NOTE | 2019-02-08 14:42 | SOAPPROG ---
SONATHAN Progress Note Assessment/Plan: Assessment:Plan: see full dictated consult 49 y/o male with CBD stone and Cholecystitis ERCp followed by guillermo Andrea MD [phone] 02/07/19 13:47 02/08/19 14:40 1) CBD stone - removed s/p ERCP, bili and lfts trending down 2) GB - s/p lap yecenia doing well, eating food, maybe home today 02/08/19 14:44 Subjective: cc- CBD stone cholecystitis feeling well s/p ercp and lap yecenia prob home today Objective: Vital Signs Temp Pulse Resp BP Pulse Ox 36.4 C 77 14 135/78 H 91 L 02/08/19 13:28 02/08/19 13:28 02/08/19 13:28 02/08/19 13:28 02/08/19 13:28 Laboratory Results 02/08/19 04:54 02/08/19 04:54 02/07/19 02/08/19 02/09/19 05:59 05:59 05:59 Intake Total 1984 1200 2655 Balance 1983 1200 2655 PT 12.8 SEC (12.0-15.0) 02/07/19 04:21 INR 1.00 (0.83-1.16) 02/07/19 04:21 CTA S1S2 +BS soft mild tenderness at surgical sites Laboratory Tests 02/07/19 02/08/19 04:21 04:54 Total Bilirubin 7.0 H 4.2 H AST 137 H 98 H ALT 351 H 300 H Alkaline Phosphatase 184 H 174 H ICD10 Worksheet Patient Problems: Problems Problem Status Onset Abdominal pain Acute
--- NOTE | 2019-02-08 15:12 | PDDCSUM ---
Discharge Summary Discharge Summary: DISCHARGE DIAGNOSES: * Acute and chronic cholecystitis, with multiple gallstones and choledocholithiasis * Status post ERCP with stone removal and cholecystectomy CONSULTANTS: Dr. Jaya Peña PROCEDURES: ERCP with removal of ductal gallstone Laparoscopic cholecystectomy Abdominal ultrasound HOSPITAL COURSE SUMMARY: This patient presented with abdominal pain and jaundice and was found to have cholecystectitis without fever, but with multiple stones and ductal stones. He was treated initially with some empiric antibiotic and went to ERCP where he had removal of a ductal stone. He then underwent laparoscopic cholecystectomy which was successful, uncomplicated, and very well tolerated. At this point the patient is feeling much better, eating a regular diet, up walking around without any difficulty or pain. Exam is unremarkable other than his surgical incisions. Liver enzymes are improving significantly each day. At this point is felt stable for discharge to home He is given wound care instructions and activity restriction instructions PENDING TEST RESULTS: Final pathology from surgery MEDICATION CHANGES: None FOLLOW-UP PLAN: With Dr. Wilfredo Peña in 2 weeks Greater than 35 minutes bedside and care coordination time today
--- NOTE | 2019-02-08 15:25 | POSTANESTH ---
Post Anesthetic Evaluation Cardiovascular Status: Normal, Stable Respiratory Status: Normal, Stable Level of Consciousness/Mental Status: Can Participate in Eval, Alert and Oriented Pain Control: Adequate, Prn Tx Ordered Nausea/Vomiting Control: Adequate, Prn Tx Ordered Complications Possibly Related to Anesthesia: None Noted
== END 2019-02-08 15:35 | disposition home or self-care (01) | DRG 419 ==
LOC: F3E 19:35
PROVIDERS: ADMIT Internal Medicine; ATTEND Internal Medicine
PROC: 0FC98ZZ Extirpation of Matter from Common Bile Duct, Via Natural or Artificial Opening Endoscopic (ICD-10-PCS; 2019-02-07)
PROC: 0FT44ZZ Resection of Gallbladder, Percutaneous Endoscopic Approach (ICD-10-PCS; principal; 2019-02-08 09:00)
DX: K80.67 Calculus of gallbladder and bile duct with acute and chronic cholecystitis with obstruction (principal); Z95.2 Presence of prosthetic heart valve
CPT/HCPCS: J1100; J1170; J1335; J1610; J1885; J2001; J2405; J2704; J3010; Q9961; Q9967